=== PATIENT | male | born 1980 | race Caucasian/White ===

== ENCOUNTER → 2017-09-11 | Outpatient (CLI) | payer OTHER | END | disposition home or self-care (01) | LOC: CFH 14:51 | PROVIDERS: ATTEND Family Medicine | DX: M41.86 Other forms of scoliosis, lumbar region (principal) | CPT/HCPCS: 72114 ==

== ENCOUNTER 2020-03-13 13:20 | Emergency (ER) | payer OTHER ==
[~2020-03-13] VITALS: Ht 175.3 cm; Wt 102.5 kg
[2020-03-13 13:21] VITALS: BP 126/92
[2020-03-13] MEDS ORDERED: FLUT9.9S INH (13:24)
[2020-03-13] MEDS ORDERED: KETOROLAC 30 MG/1 ML ONE (13:27)
[2020-03-13] MEDS ORDERED: DIAZEPAM 5 MG TABLET ONE (13:27)
[2020-03-13] MEDS ORDERED: KETOROLAC 30 MG/1 ML IM ONE (13:30)
[2020-03-13] MEDS ORDERED: DIAZEPAM 5 MG TABLET PO ONE (13:30)
[2020-03-13] MEDS ORDERED: PLEASE ENTER HEIGHT AND WEIGHT MC SCH (13:30)
== END 2020-03-13 14:16 | disposition home or self-care (01) ==
LOC: ED 13:50
DX: S39.012A Strain of muscle, fascia and tendon of lower back, initial encounter (principal); M51.36 Other intervertebral disc degeneration, lumbar region; X58.XXXA Exposure to other specified factors, initial encounter; Y93.89 Activity, other specified; Y92.89 Other specified places as the place of occurrence of the external cause; Y99.8 Other external cause status
CPT/HCPCS: 72110; 96372; 99283; J1885

== ENCOUNTER 2020-08-01 00:52 | Emergency (ER) | payer OTHER ==
[~2020-08-01] VITALS: Ht 175.3 cm; Wt 106.0 kg
[~2020-08-01 00:52] MED LIST: FLUT9.9S INH
[2020-08-01] MEDS ORDERED: MORPHINE SULFATE 4 MG/ML, 1ML IVPush PRN (01:00)
[2020-08-01] MEDS ORDERED: ONDANSETRON 2MG/ML, 2ML IVPush ONE (01:00)
[2020-08-01] MEDS ORDERED: ASPIRIN 81 MG TABLET CHEW PO ONE (01:00)
--- NOTE | 2020-08-01 01:02 | NUR ---
pt bib remsa to room 13. c/o chest pain, placed in gown, and on cr monitor, MD to bedside to evaluate. piv to right ac 18g per EMS
[2020-08-01] MEDS ORDERED: MORPHINE SULFATE 4 MG/ML, 1ML ONE ×2 (01:07→03:12)
[2020-08-01] MEDS ORDERED: ONDANSETRON 2MG/ML, 2ML ONE (01:07)
--- NOTE | 2020-08-01 01:13 | NUR ---
pt received meds per MD order. a&ox4. call womack within reach, pt on cr monitor, states morphine has helped his chest pain.
--- NOTE | 2020-08-01 01:19 | NUR ---
piv to right ac flushed with 5ml of NS and flushed easy, no swelling redness or infiltration noted. meds given per emar orders. pt states pain relief to chest after the pain meds.
[2020-08-01 01:45] LABS: BASOPHILS % (AUTO) 1 % (0-1); EOSINOPHILS % (AUTO) 1 % (1-7); LYMPHOCYTES % (AUTO) 13 % (22-44); MEAN CORPUSCULAR HEMOGLOBIN 29.8 pg (27.5-34.5); MEAN CORPUSCULAR HGB CONC 33.9 g/dL (33.2-36.2); MEAN PLATELET VOLUME 8.6 fL (7.4-10.4); MONOCYTES % (AUTO) 7 % (2-9); NEUTROPHILS % (AUTO) 78 % (42-75); PLATELET COUNT 267 x10^3/uL (130-400); RED BLOOD COUNT 5.05 x10^6/uL (4.38-5.82); RED CELL DISTRIBUTION WIDTH 13.1 % (9.4-14.8)
[2020-08-01 01:50] LABS: ALANINE AMINOTRANSFERASE 47 U/L (12-78); ANION GAP 3 mmol/L (5-15); CALCIUM 8.7 mg/dL (8.5-10.1); CHLORIDE 105 mmol/L (98-107); CREATININE 1.25 mg/dL (0.7-1.3)
[2020-08-01 01:55] LABS: ALKALINE PHOSPHATASE 48 U/L (45-117); BILIRUBIN,TOTAL 0.5 mg/dL (0.2-1.0); TOTAL PROTEIN 7.9 g/dL (6.4-8.2); TROPONIN I < 0.015 ng/mL (0.000-0.045)
[2020-08-01 02:23] LABS: MD SCAN
--- NOTE | 2020-08-01 02:37 | NUR ---
pt taken to CT by [email or web address], no acute distress at this time.
[2020-08-01] MEDS ORDERED: OMNIPAQUE 350 MG/ML, 100ML BOTTLE ONE (03:05)
--- NOTE | 2020-08-01 03:07 | NUR ---
pt back from ct. waiting for ct to be read. labs back. MD aware. pt calm, no discomfort at this time. call light within reach.
--- NOTE | 2020-08-01 05:04 | NUR ---
pt resting comfortably and no complaint of pain at this time. Waiting on lab to come and draw troponin level repeat.
--- NOTE | 2020-08-01 05:13 | NUR ---
lab to bedside to draw repeat troponin level. pt tolerated well.
[2020-08-01 05:40] LABS: TROPONIN I < 0.015 ng/mL (0.000-0.045)
[2020-08-01 06:09] VITALS: BP 129/77
== END 2020-08-01 06:12 | disposition home or self-care (01) ==
LOC: ED 04:44
DX: R07.89 Other chest pain (principal); R00.0 Tachycardia, unspecified; R06.02 Shortness of breath
CPT/HCPCS: 36415; 71045; 71275; 80053; 84484; 85025; 85379; 93005; 96374; 96375; 99285; J2270; J2405; Q9967